=== PATIENT | male | born 1950 | race Caucasian/White ===

== ENCOUNTER 2020-03-01 10:40 | Inpatient (IN) | payer OTHER, MEDICARE, SELFPAY ==
[2020-03-01] VITALS (19 sets, daily range): BP systolic 101–152; BP diastolic 67–114; PULSE 103–126; RESP 17–32; TEMP 36.5–36.8; O2SAT 4–99; BMI 18.8
--- NOTE | 2020-03-01 11:03 | W.ED.SOB ---
HPI - SOB/Dyspnea General: Chief Complaint: Shortness of Breath/Dyspnea Stated Complaint: DIFF BREATHING Time Seen by Provider: 03/01/20 10:47 History of Present Illness: HPI Narrative: 69-year-old male presents emergency room complaint difficulty breathing. States he has been short of breath pretty consistently for the last year. More recently he has been having an increasing cough wheezing his albuterol nebs do not seem to be working as well. He was at the [facility] evidently today his oxygen saturations were in the low 80s he was started on 2 L by nasal cannula and titrated up to 4 L for the time he arrived here. His oxygen saturations now are in the 90s. He has not had any fever he has had some generalized muscle aches although he does not compared to flulike symptoms he has had some loose stools. Is not recently been on any antibiotics or steroids. MD elicited complaint: shortness of breath and cough Pertinent past history: COPD Onset (ago): month(s) Timing: constant Severity: severe Exacerbating factors: exertion, coughing and stress Relieving factors: nothing and oxygen Known history of: COPD Associated symptoms: Reports chest congestion, myalgias and palpitations; Deny abdominal pain, chest pain, cough, diaphoresis, dizziness, extremity pain, fever(s), hemoptysis, lightheadedness, nausea, orthopnea, paresthesias, polydipsia, polyuria, rash, sense of impending doom, syncope or vomiting Treatment prior to arrival: oxygen Review of Systems Const: Denies: fever(s) or diaphoresis ENMT: Denies: throat pain, ear or mastoid pain, nasal discharge or nasal congestion Card: Reports: palpitations; Denies: chest pain, lightheadedness, syncope or orthopnea Resp: Reports: chest congestion; Denies: hemoptysis GI: Denies: abdominal pain, nausea or vomiting : Denies: flank pain, dysuria, urinary frequency or urinary urgency Musc: Denies: extremity pain Skin/Breast: Denies: rash or pruritus Neuro: Denies: dizziness Endo: Denies: polyuria or polydipsia Physical Exam Const: COMMON NORMALS: no acute distress GENERAL APPEARANCE: cooperative and comfortable ORIENTATION/CONSCIOUSNESS: Yes awake, Yes oriented to person, Yes oriented to place and Yes oriented to time HENMT: COMMON NORMALS: normocephalic, atraumatic and hearing grossly normal bilaterally HEAD & SCALP: normocephalic and atraumatic Neck/C-Spine: COMMON NORMALS: no JVD Resp: COMMON NORMALS: normal respiratory effort, No retractions, No use of accessory muscles and clear to auscultation bilaterally AUSCULTATION: clear to auscultation bilaterally Cardio: COMMON NORMALS: no JVD, regular rate, regular rhythm and No murmurs present (Cardio) RATE: regular rate RHYTHM: regular rhythm GI: COMMON NORMALS: Soft to palpation and No hepatosplenomegaly present AUSCULTATION: Yes normoactive bowel sounds PALPATION: Yes Soft to palpation, No Tenderness to palpation present (GI), No Guarding due to palpation present (GI) and Yes No hepatosplenomegaly present Extremity: COMMON NORMALS: normal to inspection, capillary refill normal, no clubbing, cyanosis or edema, no calf tenderness and no pedal edema Neuro: SENSORIUM/ORIENTATION: Yes oriented to person, Yes oriented to place and Yes oriented to time Skin: COMMON NORMALS: no rashes or lesions noted GENERAL SKIN EXAM: no rashes or lesions noted Course Vital Signs: Vital signs: Vital Signs Temperature 98.3 F 03/01/20 10:43 Pulse Rate 115 H 03/01/20 16:29 Respiratory Rate 18 03/01/20 16:29 Blood Pressure 146/101 03/01/20 15:44 Pulse Oximetry 98 03/01/20 16:29 MDM - SOB/Dyspnea MDM Narrative: Medical decision making narrative: We are making arrangements for home O2 eval and the patient went outside without discussing with us. We found him outside he was extremely short of breath brought him back and is now requiring 6 L by nasal cannula definitely does require home O2. Initially he has an acute exacerbation of his COPD he will need better control discussed with Dr. Yang will admit him. His Covid test was negative. Lab Data: Labs: Lab Results 03/01/20 03/01/20 03/01/20 Range/Units 11:00 11:00 11:00 WBC 6.6 (4.0-10.0) 10^3/ uL RBC 3.92 L (4.1-5.3) 10^6/u L Hgb 13.4 (11.7-16.6) g/dL Hct 39.9 L (42.0-52.0) % MCV 101.8 H (80-94) fL MCH 34.2 H (28.0-34.0) pg MCHC 33.6 (30.0-36.0) g/dL RDW 13.1 (12.1-15.1) % Plt Count 174 (130-400) 10^3/c mm MPV 10.3 (7.4-10.4) fL Neut % (Auto) 57.2 % Lymph % (Auto) 22.5 % [place] % (Auto) 10.2 % Eos % (Auto) 7.9 % Baso % (Auto) 2.0 % Neut # (Auto) 3.77 (1.8-7.7) 10^3/u L Lymph # (Auto) 1.5 (0.8-4.8) 10^3/u L [place] # (Auto) 0.7 (0.2-0.9) 10^3/u L Eos # (Auto) 0.5 (0.0-0.8) 10^3/u L Baso # (Auto) 0.1 (0.0-0.1) 10^3/u L Nucleated RBC % (a uto) 0 % Nucleated RBCs # 0.0 /100WBC Specimen Type Sample Site ABG pH (7.35-7.45) ABG pCO2 (35-45) mmHg ABG pO2 (80.0-100.0) mmH g ABG HCO3 (22-26) mmol/L ABG O2 Saturation ABG Base Excess (-2.0-2.0) mmol/ L Avel Test A-a O2 Gradient (5-10) mmHg Hematocrit (42-52) % Hgb O2 Saturation (95-100) % Carboxyhemoglobin (0.4-20.1) %THgb Methemoglobin (0.4-1.5) % Total Hemoglobin (14-18) g/dL Ionized Calcium (1.1-1.4) mmol/L O2 Delivery Device O2 Liters/Min % FiO2 % Educational Technology Coordinator ID Sodium 136 (136-145) mmol/L Potassium 4.5 (3.5-5.1) mmol/L Chloride 96 L (98-107) mmol/L Carbon Dioxide 26 (22-29) mmol/L Anion Gap 18.5 (5-19) BUN 9 (8-23) mg/dL Creatinine 0.9 (0.7-1.2) mg/dL GFR Calculation 83.4 L (90-130) mL/min Glucose 91 (65-115) mg/dL Calculated Osmolal ity 280 L (285-295) mOsm/k g Calcium 9.3 (8.5-10.5) mg/dL Total Bilirubin 0.4 (0.15-1.2) mg/dL AST 24 (0-40) U/L ALT 15 (0-41) U/L Alkaline Phosphata se 118 (40-130) IU/L Creatine Kinase 74 (39-308) U/L Troponin T Baselin e 46 H (0-15) ng/L Troponin T 120 Min [place] (0-15) ng/L Delta Troponin T (0-10) ABS# Total Protein 6.2 L (6.6-8.7) g/dL Albumin 4.0 (3.5-5.2) g/dL Globulin 2.2 (1.3-4.6) g/dL Urine Color (Yellow) Urine Appearance (CLEAR) Urine pH (5-7) Ur Specific Gravit y (1.005-1.030) Urine Protein (Negative) Urine Glucose (UA) (Normal) Urine Ketones (Negative) Urine Blood (Negative) Urine Nitrate (Negative) Urine Bilirubin (Negative) Urine Urobilinogen (Negative) mg/dL Ur Leukocyte Jeannie ase (Negative) SARS-CoV-2 Ag (Rap id) (Negative) 03/01/20 03/01/20 03/01/20 Range/Units 11:00 13:20 14:40 WBC (4.0-10.0) 10^3/ uL RBC (4.1-5.3) 10^6/u L Hgb (11.7-16.6) g/dL Hct (42.0-52.0) % MCV (80-94) fL MCH (28.0-34.0) pg MCHC (30.0-36.0) g/dL RDW (12.1-15.1) % Plt Count (130-400) 10^3/c mm MPV (7.4-10.4) fL Neut % (Auto) % Lymph % (Auto) % [place] % (Auto) % Eos % (Auto) % Baso % (Auto) % Neut # (Auto) (1.8-7.7) 10^3/u L Lymph # (Auto) (0.8-4.8) 10^3/u L [place] # (Auto) (0.2-0.9) 10^3/u L Eos # (Auto) (0.0-0.8) 10^3/u L Baso # (Auto) (0.0-0.1) 10^3/u L Nucleated RBC % (a uto) % Nucleated RBCs # /100WBC Specimen Type Sample Site ABG pH (7.35-7.45) ABG pCO2 (35-45) mmHg ABG pO2 (80.0-100.0) mmH g ABG HCO3 (22-26) mmol/L ABG O2 Saturation ABG Base Excess (-2.0-2.0) mmol/ L Avel Test A-a O2 Gradient (5-10) mmHg Hematocrit (42-52) % Hgb O2 Saturation (95-100) % Carboxyhemoglobin (0.4-20.1) %THgb Methemoglobin (0.4-1.5) % Total Hemoglobin (14-18) g/dL Ionized Calcium (1.1-1.4) mmol/L O2 Delivery Device O2 Liters/Min % FiO2 % Educational Technology Coordinator ID Sodium (136-145) mmol/L Potassium (3.5-5.1) mmol/L Chloride (98-107) mmol/L Carbon Dioxide (22-29) mmol/L Anion Gap (5-19) BUN (8-23) mg/dL Creatinine (0.7-1.2) mg/dL GFR Calculation (90-130) mL/min Glucose (65-115) mg/dL Calculated Osmolal ity (285-295) mOsm/k g Calcium (8.5-10.5) mg/dL Total Bilirubin (0.15-1.2) mg/dL AST (0-40) U/L ALT (0-41) U/L Alkaline Phosphata se (40-130) IU/L Creatine Kinase (39-308) U/L Troponin T Baselin e (0-15) ng/L Troponin T 120 Min [place] 40.23 H (0-15) ng/L Delta Troponin T -5.77 L (0-10) ABS# Total Protein (6.6-8.7) g/dL Albumin (3.5-5.2) g/dL Globulin (1.3-4.6) g/dL Urine Color Yellow (Yellow) Urine Appearance Clear (CLEAR) Urine pH 5 (5-7) Ur Specific Gravit y 1.015 (1.005-1.030) Urine Protein Neg (Negative) Urine Glucose (UA) Norm (Normal) Urine Ketones 1+ H (Negative) Urine Blood Neg (Negative) Urine Nitrate Negative (Negative) Urine Bilirubin Neg (Negative) Urine Urobilinogen Norm (Negative) mg/dL Ur Leukocyte Jeannie ase Negative (Negative) SARS-CoV-2 Ag (Rap id) Negative (Negative) 03/01/20 Range/Units 16:08 WBC (4.0-10.0) 10^3/ uL RBC (4.1-5.3) 10^6/u L Hgb (11.7-16.6) g/dL Hct (42.0-52.0) % MCV (80-94) fL MCH (28.0-34.0) pg MCHC (30.0-36.0) g/dL RDW (12.1-15.1) % Plt Count (130-400) 10^3/c mm MPV (7.4-10.4) fL Neut % (Auto) % Lymph % (Auto) % [place] % (Auto) % Eos % (Auto) % Baso % (Auto) % Neut # (Auto) (1.8-7.7) 10^3/u L Lymph # (Auto) (0.8-4.8) 10^3/u L [place] # (Auto) (0.2-0.9) 10^3/u L Eos # (Auto) (0.0-0.8) 10^3/u L Baso # (Auto) (0.0-0.1) 10^3/u L Nucleated RBC % (a uto) % Nucleated RBCs # /100WBC Specimen Type Arterial Sample Site Radial, right ABG pH 7.33 L (7.35-7.45) ABG pCO2 37.3 (35-45) mmHg ABG pO2 87.6 (80.0-100.0) mmH g ABG HCO3 19.9 L (22-26) mmol/L ABG O2 Saturation 96.0 ABG Base Excess -5.4 L (-2.0-2.0) mmol/ L Avel Test Pos A-a O2 Gradient 23.2 H (5-10) mmHg Hematocrit 46.1 (42-52) % Hgb O2 Saturation 94.7 L (95-100) % Carboxyhemoglobin 0.9 (0.4-20.1) %THgb Methemoglobin 0.5 (0.4-1.5) % Total Hemoglobin 15.0 (14-18) g/dL Ionized Calcium 1.2 (1.1-1.4) mmol/L O2 Delivery Device Nc O2 Liters/Min 6.0 % FiO2 44.0 % Educational Technology Coordinator ID Ed Sodium 133.0 (136-145) mmol/L Potassium 5.1 H (3.5-5.1) mmol/L Chloride (98-107) mmol/L Carbon Dioxide (22-29) mmol/L Anion Gap (5-19) BUN (8-23) mg/dL Creatinine (0.7-1.2) mg/dL GFR Calculation (90-130) mL/min Glucose 128.0 H (65-115) mg/dL Calculated Osmolal ity (285-295) mOsm/k g Calcium (8.5-10.5) mg/dL Total Bilirubin (0.15-1.2) mg/dL AST (0-40) U/L ALT (0-41) U/L Alkaline Phosphata se (40-130) IU/L Creatine Kinase (39-308) U/L Troponin T Baselin e (0-15) ng/L Troponin T 120 Min [place] (0-15) ng/L Delta Troponin T (0-10) ABS# Total Protein (6.6-8.7) g/dL Albumin (3.5-5.2) g/dL Globulin (1.3-4.6) g/dL Urine Color (Yellow) Urine Appearance (CLEAR) Urine pH (5-7) Ur Specific Gravit y (1.005-1.030) Urine Protein (Negative) Urine Glucose (UA) (Normal) Urine Ketones (Negative) Urine Blood (Negative) Urine Nitrate (Negative) Urine Bilirubin (Negative) Urine Urobilinogen (Negative) mg/dL Ur Leukocyte Jeannie ase (Negative) SARS-CoV-2 Ag (Rap id) (Negative) Discharge Plan Discharge Patient Disposition: Admitted As Inpatient Clinical Impression: Acute exacerbation of chronic obstructive airways disease Condition: Stable Coding Level of Care Code ED Drivability Technician for Ciro Fwd Exam Comprehensive
--- NOTE | 2020-03-01 11:04 | XRR_ITS ---
PROCEDURE INFORMATION: Exam: XR Chest, 1 View Exam date and time: 03/01/2020 11:12 AM Age: 69 years old Clinical indication: Cough and dyspnea and shortness of breath; Patient HX: Difficulty breathing x 1 year; Additional info: Dyspnea/cough TECHNIQUE: Imaging protocol: XR of the chest Views: 1 view. COMPARISON: No relevant prior studies available. FINDINGS: Lungs: Emphysema Lungs are well aerated without a focal area of consolidation. Pleural space: Unremarkable. No pleural effusion. No pneumothorax. Heart/Mediastinum: Unremarkable. No cardiomegaly. Bones/joints: Unremarkable. XR/XR chest 1V portable [id number] IMPRESSION: Lungs are well aerated without a focal area of consolidation. Severe emphysema
--- NOTE | 2020-03-01 11:07 | ECG_ITS ---
[facility] Test Date: 2020-03-01 Pat Name: Hunter Mcadams Department: Room: Gender: Male Inspector Packager: : 1950 Requested By: Redd Gardiner Order Number: [id number] Olga MD: Tab Kat M.D. Measurements Intervals [place] Rate: 105 P: 81 MI: 166 QRS: 81 QRSD: 72 T: 77 QT: 324 QTc: 429 Interpretive Statements SINUS TACHYCARDIA WITH OCCASIONAL ECTOPIC PREMATURE COMPLEXES POSSIBLE RIGHT ATRIAL ENLARGEMENT [0.25mV P WAVE] POSSIBLE LEFT ATRIAL ENLARGEMENT [-0.1mV P WAVE IN V1/V2] SEPTAL MYOCARDIAL INFARCTION , OF INDETERMINATE AGE [40+ ms Q WAVE IN V1/V2] MODERATE T-WAVE ABNORMALITY, CONSIDER ANTERIOR ISCHEMIA [-0.1+ mV T WAVE IN V3/V4] No previous ECG available for comparison Electronically Signed On 03-01-2020 18:56:18 PRODUCT DESIGN MANAGER by Tab Kat M.D. [id number]
[2020-03-01 11:17] LABS: Basophils # 0.1 10^3/uL (0.0-0.1); Eosinophils # 0.5 10^3/uL (0.0-0.8); Eosinophils % 7.9 %; Hematocrit 39.9 % (42.0-52.0); Hemoglobin 13.4 g/dL (11.7-16.6); Lymphocytes # 1.5 10^3/uL (0.8-4.8); Lymphocytes % 22.5 %; Mean Corpuscular HGB Conc 33.6 g/dL (30.0-36.0); Mean Corpuscular Hemoglobin 34.2 pg (28.0-34.0); Mean Corpuscular Volume 101.8 fL (80-94); Mean Platelet Volume 10.3 fL (7.4-10.4); Monocytes # 0.7 10^3/uL (0.2-0.9); Monocytes % 10.2 %; Neutrophils # 3.77 10^3/uL (1.8-7.7); Neutrophils % 57.2 %; Nucleated Red Blood Cells % 0 %; Platelet Count 174 10^3/cmm (130-400); Red Blood Count 3.92 10^6/uL (4.1-5.3); Red Cell Distribution Width 13.1 % (12.1-15.1); White Blood Count 6.6 10^3/uL (4.0-10.0)
[2020-03-01] MEDS: albuterol 8 gm MDI 2 PUFF INHALATION (11:35)
[2020-03-01 11:39] LABS: Alanine Aminotransferase 15 U/L (0-41); Alkaline Phosphatase 118 IU/L (40-130); Anion Gap 18.5 (5-19); Aspartate Amino Transferase 24 U/L (0-40); Blood Urea Nitrogen 9 mg/dL (8-23); Calcium 9.3 mg/dL (8.5-10.5); Carbon Dioxide 26 mmol/L (22-29); Chloride 96 mmol/L (98-107); Creatine Phosphokinase 74 U/L (39-308); Globulin 2.2 g/dL (1.3-4.6); Glomerular Filtration Rate 83.4 mL/min (90-130); Glucose 91 mg/dL (65-115); Osmolality Calculated 280 mOsm/kg (285-295); Potassium 4.5 mmol/L (3.5-5.1); Sodium 136 mmol/L (136-145); Total Bilirubin 0.4 mg/dL (0.15-1.2); Total Protein 6.2 g/dL (6.6-8.7)
[2020-03-01 11:41] LABS: Troponin(5th) Baseline 46 ng/L (0-15)
[2020-03-01] MEDS: dexamethasone 4 mg/mL INJ 10 MG IVP (11:56)
--- NOTE | 2020-03-01 13:07 | ECG_ITS ---
[facility] Test Date: 2020-03-01 Pat Name: Hunter Mcadams Department: Room: Gender: Male Braille Transcriber: : 1950 Requested By: Redd Gardiner Order Number: [id number] Olga MD: Tab Kat M.D. Measurements Intervals [employer] Rate: 107 P: 85 OR: 167 QRS: 85 QRSD: 72 T: 83 QT: 313 QTc: 419 Interpretive Statements SINUS TACHYCARDIA POSSIBLE RIGHT ATRIAL ENLARGEMENT [0.25mV P WAVE] POSSIBLE LEFT ATRIAL ENLARGEMENT [-0.1mV P WAVE IN V1/V2] SEPTAL MYOCARDIAL INFARCTION , OF INDETERMINATE AGE [40+ ms Q WAVE IN V1/V2] Compared to ECG 03/01/2020 11:12:47 No significant changes Electronically Signed On 03-01-2020 19:05:46 COMPUTER GRAPHIC ARTIST by Tab Kat M.D. [email or web address] [id number]
[2020-03-01 13:15] LABS: SARS Covid-2 Antigen Negative (Negative)
[2020-03-01 14:58] LABS: Troponin 5 2HR 40.23 ng/L (0-15); Troponin 5 2HR Delta -5.77 ABS# (0-10)
[2020-03-01 15:07] LABS: Add Urine Microscopic? NO
[2020-03-01 15:12] LABS: Bilirubin Urine Neg (Negative); Blood Urine Neg (Negative); Glucose Urine UA Norm (Normal); Ketones Urine 1+ (Negative); Leukocyte Esterase Urine Negative (Negative); Nitrate Urine Negative (Negative); Protein Urine Neg (Negative); Specific Gravity, Urine 1.015 (1.005-1.030); Urine Appearance Clear (CLEAR); Urine Color Yellow (Yellow); Urobilinogen Urine Norm (Negative); pH Urine 5 (5-7)
[2020-03-01 16:19] LABS: ABG PCO2 37.3 mmHg (35-45); ABG PH Result 7.33 (7.35-7.45); Alveolar-Arterial Oxygen Gradi 23.2 mmHg (5-10); Arterial Blood Gas Hematocrit 46.1 % (42-52); Base Excess ABG -5.4 mmol/L (-2.0-2.0); Blood Gas Allen Test Pos; Blood Gas Operator Identificat ED; Blood Gas Sample Site Radial, right; Blood Gas Sample Type Arterial; Carboxyhemoglobin 0.9 %THgb (0.4-20.1); HCO3 ABG 19.9 mmol/L (22-26); HGB O2 Sat 94.7 % (95-100); Ionized Calcium Level - ABG 1.2 mmol/L (1.1-1.4); Methemoglobin 0.5 % (0.4-1.5); Oxygen Device NC; PO2 ABG 87.6 mmHg (80.0-100.0); Potassium Level - ABG 5.1 mmol/L (3.5-5.0)
[2020-03-01] MEDS: ipratropium-albuterol 3 mL Neb INHALATION ×3 (16:30→21:44)
--- NOTE | 2020-03-01 17:06 | PM.HP ---
Providers/Chief Complaint Primary Care Provider: Sandy Arreola DO Chief Complaint: DIFF BREATHING History of Present Illness Hunter Mcadams is a 69 year old male with a past medical history of hypertension, BPH, has a greater than [id number] history of smoking, newly diagnosed with COPD in the last few weeks, not on home oxygen, who presents to [facility] due to shortness of breath. Patient tells me that he is always short of breath, has been short of breath for the last few years, but for the last few months shortness of breath has worsened, shortness of breath acutely worsened for the last week, shortness of breath at rest with exertion, orthopnea, paroxysmal nocturnal dyspnea, he is actively wheezing, so he presented to the [facility] physician who told him to come the emergency room. Patient has a chronic cough, no increased sputum, no changes in color,. patient denies a cardiac history, denies a history of CAD, denies a history of heart attacks, denies a history of strokes, no history of diabetes, no history of hypothyroidism, no history of chronic kidney disease, history of DVTs or PEs. Patient denies any fevers, no chills, no known exposure to COVID-19, no loss of taste, no loss of smell, has never tested positive for Covid. Review of Systems Const: Denies: fever(s), chills, fatigue or malaise Eyes: Denies: change in vision or blurry vision ENMT: Denies: nasal congestion Card: Denies: chest pain or palpitations Resp: Reports: dyspnea; Denies: productive cough, non-productive cough or wheezing GI: Denies: abdominal pain, nausea, vomiting, hematemesis, diarrhea, constipation, hematochezia or melena : Denies: flank pain, difficulty urinating, dysuria or urinary frequency Musc: Denies: neck pain or back pain Skin/Breast: Denies: rash Neuro: Denies: headache(s), dizziness or vertigo Psych: Denies: anxiety or depression Endo: Denies: polyuria or polydipsia Medications/Allergies Home Medications Medication Instructions Recorded Confirmed Last Taken Type albuterol sulfate 2 puff INHALATION QID PRN 03/01/20 03/01/20 Unknown History aspirin 325 mg PO DAILY 03/01/20 03/01/20 Unknown History cyanocobalamin (vitamin B-12) 100 mcg PO PRN 03/01/20 03/01/20 Unknown History [Vitamin B-12] guaifenesin 200 mg PO Q6H PRN 03/01/20 03/01/20 03/01/20 History written q4h prn ibuprofen 200 - 800 mg PO PRN 03/01/20 03/01/20 Unknown History ipratropium-albuterol 3 ml INHALATION QID PRN 03/01/20 03/01/20 Unknown History lisinopril-hydrochlorothiazide 1 tab PO QAM 03/01/20 03/01/20 03/01/20 History montelukast 10 mg PO QPM 03/01/20 03/01/20 Unknown History multivitamin 1 tab PO DAILY 03/01/20 03/01/20 Unknown History olodaterol [Striverdi Respimat] 2 inh INHALATION QAM 03/01/20 03/01/20 03/01/20 History tamsulosin [Flomax] 0.4 mg PO QPM 03/01/20 03/01/20 02/27/20 History doesnt take daily vitamin E 1 cap PO PRN 03/01/20 03/01/20 Unknown History Allergies Allergy/AdvReac Type Severity Reaction Status Date / Time pneumococcal vaccine Allergy Unknown Verified 03/01/20 13:15 bee stings Allergy Unknown Uncoded 03/01/20 13:15 PFSH Acute PFSH: Medical History (Updated 03/01/20 @ 17:13 by Russel Carolina MD) BPH (benign prostatic hyperplasia) HTN (hypertension) with goal to be determined Surgical History (Updated 03/01/20 @ 17:11 by Russel Carolina MD) No pertinent past surgical history Family History (Updated 03/01/20 @ 17:11 by Russel Carolian MD) Other Adopted Social History (Updated 03/01/20 @ 17:12 by Russel Carolina MD) Smoking and tobacco status: current every day smoker Alcohol intake: current Substance/Drug Use: never Vitals/I&O/Wt Last Vital Signs Temp 98.3 F 03/01/20 10:43 Pulse 115 H 03/01/20 16:29 Resp 18 03/01/20 16:29 BP 146/101 03/01/20 15:44 Pulse Ox 98 03/01/20 16:29 Weight last 48 hrs Weight 54.431 kg Physical Exam Const: COMMON NORMALS: no acute distress and patient oriented x3 GENERAL APPEARANCE: cooperative and comfortable HENMT: COMMON NORMALS: normocephalic HEAD & SCALP: normocephalic Eye: COMMON NORMALS: Equal, round and reactive pupils present and EOMs intact bilaterally GENERAL EYE: appearance normal, both eyes and all related structures PUPIL: Yes Equal, round and reactive pupils present Neck/C-Spine: COMMON NORMALS: full ROM, no lymphadenopathy, no JVD and Thyroid normal THYROID: Thyroid normal Lymph: LYMPHATIC: no lymphadenopathy noted Resp: COMMON NORMALS: normal respiratory effort, No retractions and No use of accessory muscles AUSCULTATION: wheezes inspiratory wheezes (throughout) Cardio: COMMON NORMALS: no JVD, regular rate, regular rhythm, S1 normal heart sound present, S2 normal heart sound present, No gallops present (Cardio), No clicks present (Cardio) and No murmurs present (Cardio) RATE: regular rate RHYTHM: regular rhythm HEART SOUNDS: S1 normal heart sound present and S2 normal heart sound present GI: COMMON NORMALS: Normal to inspection, nondistended, normoactive bowel sounds present, Soft to palpation, non-tender and No hepatosplenomegaly present PALPATION: Yes Soft to palpation and Yes No hepatosplenomegaly present Extremity: COMMON NORMALS: normal to inspection, full ROM and no pedal edema Neuro: COMMON NORMALS: patient oriented x3, CN's II-XII intact bilaterally, moves all extremities and no focal motor deficits Psych: COMMON NORMALS: mental status grossly normal, Normal thought process present and cooperative THOUGHT PROCESS: Normal thought process present Data : 03/01/20 11:00 03/01/20 11:00 A&P Assessment and plan (1) Acute respiratory failure with hypoxia: Secondary to COPD exacerbation Plan: -Admit to general medical floors -Solu-Medrol 40 IV every 8 hours -DuoNebs every 4 hours scheduled -Doxycycline for anti-inflammatory antibiotic coverage -We will order CT angiogram of the chest to rule out pulmonary emboli -Cardiac echocardiogram given complaints of orthopnea paroxysmal nocturnal dyspnea, BNP -Clinically monitor respiratory status -Sputum cultures, blood cultures, urine bacterial antigens -Covid rapid negative, will order Covid PCR, isolation for now -Patient is a full code -Lovenox for DVT prophylaxis Status: Acute (2) BPH (benign prostatic hyperplasia): Status: Acute (3) HTN (hypertension) with goal to be determined: Status: Acute (4) Acute exacerbation of chronic obstructive airways disease: Status: Acute Attestations Medical Necessity Statement*: Patient requires hospitalization, inpatient, greater than 2 midnights for acute respiratory failure with hypoxia secondary to COPD Coding Level of Care Code Acute Rnp for [facility] Fwd Diagnoses Acute respiratory failure with hypoxia J96.01 BPH (benign prostatic hyperplasia) N40.0 HTN (hypertension) with goal to be determined I10 Acute exacerbation of chronic obstructive airways disease J44.1
--- NOTE | 2020-03-01 17:07 | ECG_ITS ---
[facility] Test Date: 2020-03-01 Pat Name: Hunter Mcadams Department: Room: Gender: Male Program Facilitator: : 1950 Requested By: Redd Gardiner Order Number: [id number] Olga MD: Tab Kat M.D. Measurements Intervals [place] Rate: 119 P: 87 [place]: 157 QRS: 75 QRSD: 64 T: 80 QT: 289 QTc: 407 Interpretive Statements SINUS TACHYCARDIA WITH OCCASIONAL ECTOPIC PREMATURE COMPLEXES RIGHT ATRIAL ENLARGEMENT [0.3mV P WAVE] POSSIBLE LEFT ATRIAL ENLARGEMENT [-0.1mV P WAVE IN V1/V2] SEPTAL MYOCARDIAL INFARCTION , OF INDETERMINATE AGE [40+ ms Q WAVE IN V1/V2] Compared to ECG 03/01/2020 13:17:41 No significant changes Electronically Signed On 03-01-2020 19:01:50 ASSESSMENT NURSE by Tab Kat M.D. [id number]
[2020-03-01 18:58] LABS: Troponin 5 6HR 35.04 ng/L (0-15)
[2020-03-01 19:03] LABS: Troponin 5 6HR Delta -10.96 ng/L (0-12)
[2020-03-01] MEDS: D5-NS 0.45% + KCL 20 mEq 20 MEQ/1,000 ML BAG 100 MEQ IV (21:59)
[2020-03-01] MEDS: tamsulosin 0.4 mg Capsule PO (22:00)
[2020-03-01] MEDS: montelukast sodium 10 mg Tablet PO (22:00)
[2020-03-01] MEDS: enoxaparin 40 mg/0.4 mL Syringe SUBCUT (22:00)
[2020-03-01] MEDS: famotidine 20 mg Tablet PO (22:00)
[2020-03-02] VITALS (15 sets, daily range): BP systolic 108–139; BP diastolic 69–77; PULSE 89–128; RESP 17–20; TEMP 36.5–36.8; O2SAT 92–98
[2020-03-02] MEDS: ipratropium-albuterol 3 mL Neb INHALATION ×5 (02:31→19:20)
[2020-03-02] MEDS: guaiFENesin-dextromethorphan UDC 10 mL 5 ML PO (05:13)
[2020-03-02 05:31] LABS: Basophils % 0.2 %; Hematocrit 38.5 % (42.0-52.0); Hemoglobin 12.4 g/dL (11.7-16.6); Lymphocytes # 0.8 10^3/uL (0.8-4.8); Lymphocytes % 15.8 %; Mean Corpuscular HGB Conc 32.2 g/dL (30.0-36.0); Mean Corpuscular Hemoglobin 33.4 pg (28.0-34.0); Mean Corpuscular Volume 103.8 fL (80-94); Mean Platelet Volume 10.8 fL (7.4-10.4); Monocytes # 0.2 10^3/uL (0.2-0.9); Monocytes % 4.4 %; Neutrophils # 3.96 10^3/uL (1.8-7.7); Neutrophils % 79.4 %; Nucleated Red Blood Cells % 0 %; Platelet Count 164 10^3/cmm (130-400); Red Blood Count 3.71 10^6/uL (4.1-5.3); Red Cell Distribution Width 12.9 % (12.1-15.1)
[2020-03-02] MEDS: nicotine 21 mg Patch 1 PATCH TRANSDERMA (05:39)
[2020-03-02] MEDS: ALPRAZolam 0.5 mg Tablet PO (05:40)
[2020-03-02 06:05] LABS: Alanine Aminotransferase 15 U/L (0-41); Albumin Level 3.5 g/dL (3.5-5.2); Alkaline Phosphatase 97 IU/L (40-130); Aspartate Amino Transferase 20 U/L (0-40); Blood Urea Nitrogen 11 mg/dL (8-23); Calcium 8.9 mg/dL (8.5-10.5); Carbon Dioxide 21 mmol/L (22-29); Chloride 93 mmol/L (98-107); Globulin 2.6 g/dL (1.3-4.6); Glomerular Filtration Rate 95.6 mL/min (90-130); Glucose 214 mg/dL (65-115); Osmolality Calculated 272 mOsm/kg (285-295); Sodium 128 mmol/L (136-145); Total Bilirubin 0.3 mg/dL (0.15-1.2); Total Protein 6.1 g/dL (6.6-8.7)
[2020-03-02] MEDS: doxycycline 100 MG in sodium chloride 0.9% (plus) 100 ML IV ×2 (06:39→18:01)
[2020-03-02 06:44] LABS: Estmated Average Glucose 82; Hemoglobin A1C 4.5 % (4.0-6.0)
[2020-03-02 06:46] LABS: Phosphorus 3.2 mg/dL (2.5-4.5); Thyroid Stimulating Hormone 1.64 uIU/mL (0.27-4.20)
[2020-03-02 06:47] LABS: NT Pro B Type Natriuretic Pept 827 pg/mL (0-125); Procalcitonin 0.05 ng/mL (0-0.5)
[2020-03-02 06:58] LABS: Chol HDL Ratio 1.75 mg/dL (1.0-5.00); Cholesterol 194 mg/dL (0-200); HDL Cholesterol 111 mg/dL (60-100); LDL Cholesterol Calculated 74 mg/dL (50-129); LDL HDL Ratio 0.67 RATIO (0.00-3.22); Triglycerides 45 mg/dL (0-150)
[2020-03-02] MEDS: multivitamin therapeutic Tablet 1 TAB PO (08:15)
[2020-03-02] MEDS: aspirin 325 mg Tablet 81 MG PO (08:15)
[2020-03-02] MEDS: hydroCHLOROthiazide 25 mg Tablet 12.5 MG PO (08:15)
[2020-03-02] MEDS: famotidine 20 mg Tablet PO ×2 (08:15→16:56)
[2020-03-02] MEDS: lisinopril 20 mg Tablet PO (08:16)
--- NOTE | 2020-03-02 12:05 | P.PN_ITS ---
Subjective Subjective: Interval history: This morning patient was examined, he is getting ready to go down for CT angiogram, he is down to 4 L, he tells me that he is a bit better, but still having some shortness of breath, had trouble sleeping overnight, no chest pain, no fevers, no chills Vitals/I&O/Wt Last Vital Signs Temp 97.8 F 03/02/20 11:15 Pulse 107 H 03/02/20 11:26 Resp 18 03/02/20 11:26 BP 132/77 03/02/20 11:15 Pulse Ox 93 03/02/20 11:26 03/01/20 03/02/20 03/02/20 22:59 06:59 14:59 Intake Total 320 / 320 Output Total 200 / 200 300 / 300 Balance -200 / -200 20 / 20 Weight last 48 hrs Weight 54.431 kg Physical Exam Const: COMMON NORMALS: no acute distress and patient oriented x3 HENMT: COMMON NORMALS: normocephalic HEAD & SCALP: normocephalic Neck/C-Spine: COMMON NORMALS: no JVD Resp: COMMON NORMALS: normal respiratory effort, No retractions and No use of accessory muscles AUSCULTATION: wheezes Cardio: COMMON NORMALS: no JVD, regular rate, regular rhythm, S1 normal heart sound present and S2 normal heart sound present RATE: regular rate RHYTHM: regular rhythm HEART SOUNDS: S1 normal heart sound present and S2 normal heart sound present GI: COMMON NORMALS: Normal to inspection, nondistended, normoactive bowel sounds present, Soft to palpation, non-tender, No hepatosplenomegaly present, no masses and no bruits PALPATION: Yes Soft to palpation and Yes No hepatosplenomegaly present Extremity: COMMON NORMALS: capillary refill normal, no clubbing, cyanosis or edema, no calf tenderness and no pedal edema Neuro: COMMON NORMALS: patient oriented x3 Psych: COMMON NORMALS: mental status grossly normal Data : 03/02/20 04:58 03/02/20 04:58 Micro: Microbiology 03/01/20 22:58 Blood Culture - Preliminary Blood SPECIMEN COLLECTED 03/01/20 22:51 Blood Culture - Preliminary Blood SPECIMEN COLLECTED A&P Assessment and plan (1) Acute respiratory failure with hypoxia: Secondary to COPD exacerbation Plan: -Admit to general medical floors -Solu-Medrol 40 IV every 8 hours -DuoNebs every 4 hours scheduled -Doxycycline for anti-inflammatory antibiotic coverage -We will order CT angiogram of the chest to rule out pulmonary emboli -Cardiac echocardiogram given complaints of orthopnea paroxysmal nocturnal dyspnea, BNP 827, does not appear fluid overloaded -Clinically monitor respiratory status -Sputum cultures, blood cultures, urine bacterial antigens -Covid rapid negative, will order Covid PCR, isolation for now -Patient is a full code -Lovenox for DVT prophylaxis Status: Acute (2) BPH (benign prostatic hyperplasia): Status: Acute (3) HTN (hypertension) with goal to be determined: Status: Acute (4) Acute exacerbation of chronic obstructive airways disease: Status: Acute (5) NSTEMI (non-ST elevated myocardial infarction): Likely type II NSTEMI from respiratory failure Status: Acute Additional A&P Information Plan for today await CT angiogram results, echo results, continue steroids, duo nebs, PT OT Attestations Medical Necessity Statement*: Patient requires hospitalization for acute respiratory failure secondary COPD exacerbation, Coding Level of Care Code Acute Underwriting Technician for [facility] Fwd Diagnoses Acute respiratory failure with hypoxia J96.01 BPH (benign prostatic hyperplasia) N40.0 HTN (hypertension) with goal to be determined I10 Acute exacerbation of chronic obstructive airways disease J44.1 NSTEMI (non-ST elevated myocardial infarction) I21.4
[2020-03-02] MEDS: tamsulosin 0.4 mg Capsule PO (16:56)
[2020-03-02 16:57] LABS: Coronavirus Test Green County Not Detected
[2020-03-02] MEDS: montelukast sodium 10 mg Tablet PO (16:57)
--- NOTE | 2020-03-02 18:05 | ANES.PROC ---
Anesthesia Procedures Procedure/Date: 03/02/20 IV Procedure Narrative: Called at request of for PIV for CT with contrast. Used US guided technique and on second attempt inserted 20 ga IV to left bicep after prepped area with alcohol. Good blood return and flushed well with tegaderm applied. Pt tolerated well
[2020-03-02] MEDS: iohexol 350 mg/mL 100 mL Btl IV (20:40)
[2020-03-02] MEDS: enoxaparin 40 mg/0.4 mL Syringe SUBCUT (21:12)
--- NOTE | 2020-03-02 21:28 | USCV_ITS ---
Hunter Mcadams Age: 69 Gender: M : 1950 Exam Date: 03/02/2020 11:45 Ordering Phys: Russel Carolina MD Technologist: Shanique Ferrer Exam Location: [facility] – [place] Indication: SOB BP: / HR: Rhythm: Other Technical Quality: Poor secondary to COPD MEASUREMENTS (Male / Female) Normal Values 2D ECHO LV Diastolic Diameter PLAX 3.1 cm 4.2 - 5.9 / 3.9 - 5.3 cm LV Systolic Diameter PLAX 2.4 cm LV Chamber Size 3.5 cm IVS Diastolic Thickness 0.4 cm 0.6 - 1.0 / 0.6 - 0.9 cm IVS Systolic Thickness 1.1 cm LVPW Diastolic Thickness 1.3 cm 0.6 - 1.0 / 0.6 - 0.9 cm LVPW Systolic Thickness 0.7 cm RV Chamber Size 3.1 cm LVOT Diameter 2.0 cm LV Ejection Fraction 2D Teich 49.0 % LA Diameter 2.4 cm LA Width 2.5 cm LA Height 2.7 cm RA Width 2.6 cm RA Height 3.3 cm M-MODE LV Diastolic Diameter MM 5.2 cm 4.2 - 5.9 / 3.9 - 5.3 cm LV Systolic Diameter MM 3.6 cm LV Ejection Fraction MM Teich 59.6 % IVS Diastolic Thickness MM 1.0 cm 0.6 - 1.0 / 0.6 - 0.9 cm IVS Systolic Thickness MM 1.3 cm LVPW Diastolic Thickness MM 1.0 cm 0.6 - 1.0 / 0.6 - 0.9 cm LVPW Systolic Thickness MM 1.5 cm Aortic Annulus Diameter 3.4 cm LA Ao Ratio MM 0.4 MV E Point Septal Separation 0.5 cm DOPPLER AV Peak Velocity 204.0 cm/s LVOT Peak Velocity 98.0 cm/s AV Area Cont Eq vti 1.1 cm squared AV Area Cont Eq pk 1.5 cm squared MV E' Velocity 8.0 cm/s TV Peak E Velocity 80.0 cm/s Right Atrial Pressure 8.0 mmHg FINDINGS Left Ventricle Normal left ventricular size and systolic function, EF 55% . No gross wall motion normalities noted Right Ventricle Possibly normal size ejection fraction Right Atrium The right atrium is normal in size. Left Atrium The left atrium is normal in size. Mitral Valve Mild mitral annular calcification. Aortic Valve Thickened aortic valve. Trace aortic valve regurgitation. Tricuspid Valve Trace to mild tricuspid valve regurgitation. Pulmonic Valve Pulmonic valve not well visualized. Pericardium Normal pericardium without effusion. Aorta Normal ascending aorta dimension. CONCLUSIONS Normal left ventricular size and systolic function, EF 55% . No gross wall motion normalities noted. Thickened aortic valve. Trace aortic valve regurgitation. Trace to mild tricuspid valve regurgitation. Mild mitral annular calcification. There is no pericardial effusion. There are no intracardiac masses. No previous study is available for comparison. Dr Jannette Stern MD FACC (Electronically Signed) Final Date: 02 March 2020 17:39 S
--- NOTE | 2020-03-02 21:28 | CTR_ITS ---
PROCEDURE INFORMATION: Exam: CT Angiography Chest With Contrast Exam date and time: 03/02/2020 8:29 AM Age: 69 years old Clinical indication: Shortness of breath; Additional info: SOB TECHNIQUE: Imaging protocol: Computed tomographic angiography of the chest with intravenous contrast. 3D rendering (Not supervised by radiologist): MIP and/or 3D reconstructed images were created by the technologist. Total images: 858 Radiation optimization: All CT scans at this facility use at least one of these dose optimization techniques: automated exposure control; mA and/or kV adjustment per patient size (includes targeted exams where dose is matched to clinical indication); or iterative reconstruction. Contrast material: OMNI 350; Contrast volume: 48 ml; Contrast route: INTRAVENOUS (IV); COMPARISON: CR XR chest 1V portable [id number] 03/01/2020 11:05 AM RADIATION DOSE METRICS: Total DLP (mGy-cm): 504.64 FINDINGS: Pulmonary arteries: No visible evidence of pulmonary embolism/pulmonary arterial thrombus. Aorta: The thoracic aorta is nonaneurysmal. No visible intimal flap or dissection. Moderately advanced arterial sclerotic disease. Lungs: Mild centrilobular emphysema. No visible active interstitial or alveolar airspace disease. Rare focus of nonobstructing tracheal mucus. Pleural space: Unremarkable. No pneumothorax. No pleural effusion. Heart: Advanced 3 vessel coronary artery disease. Left ventricular hypertrophy. No cardiomegaly. No visible pericardial effusion. Lymph nodes: No visible evidence of active mediastinal or hilar lymphadenopathy. Bones/joints: No visible active or acute osseous pathology. Old superior endplate fractures of L1 and L2. Soft tissues: Unremarkable for age CT/CT angio chest PE protcl [id number] IMPRESSION: 1. No visible evidence of pulmonary embolism/pulmonary arterial thrombus. 2. Advanced 3 vessel coronary disease with left ventricular hypertrophy. Radiation Dose CTDIVOL = (mGy): DLP = 504.64 (mGy-cm)
[2020-03-03] VITALS (14 sets, daily range): BP systolic 114–128; BP diastolic 71–81; PULSE 73–121; RESP 17–18; TEMP 36.5–37; O2SAT 78–100
[2020-03-03] MEDS: ipratropium-albuterol 3 mL Neb INHALATION ×4 (00:11→12:14)
[2020-03-03] MEDS: D5-NS 0.45% + KCL 20 mEq 20 MEQ/1,000 ML BAG 100 MEQ IV (00:37)
--- NOTE | 2020-03-03 04:31 | PC.NURSE ---
Physician Notification Patient was seen wondering into a neighboring room, states he was trying to find the restroom. Nurse noticed a trail of blood following him. IV fluids were disconnected and IV site was bleeding. Applied pressure to IV site, catheter that was removed inadvertently was intact. Assisted patient back to room. Patient is A&O to person. VS as follows: T96.8 BP135/80 P113 RR22 O2 99% on 3L BG [address] Macedo, received order for 1:1 sitter, will decrease IV steroids.
[2020-03-03 04:40] LABS: Glucose Point of Care 184 mg/dL (70-110)
[2020-03-03 05:50] LABS: Basophils % 0.1 %; Hematocrit 38.7 % (42.0-52.0); Hemoglobin 12.8 g/dL (11.7-16.6); Lymphocytes # 0.6 10^3/uL (0.8-4.8); Lymphocytes % 3.8 %; Mean Corpuscular HGB Conc 33.1 g/dL (30.0-36.0); Mean Corpuscular Hemoglobin 34.2 pg (28.0-34.0); Mean Corpuscular Volume 103.5 fL (80-94); Monocytes # 0.7 10^3/uL (0.2-0.9); Monocytes % 4.8 %; Neutrophils # 13.33 10^3/uL (1.8-7.7); Neutrophils % 90.9 %; Nucleated Red Blood Cells % 0 %; Platelet Count 197 10^3/cmm (130-400); Red Blood Count 3.74 10^6/uL (4.1-5.3); Red Cell Distribution Width 13.2 % (12.1-15.1); White Blood Count 14.7 10^3/uL (4.0-10.0)
[2020-03-03 06:32] LABS: Magnesium 1.9 mg/dL (1.7-2.3); Phosphorus 2.8 mg/dL (2.5-4.5)
[2020-03-03 06:36] LABS: Alanine Aminotransferase 16 U/L (0-41); Albumin Level 3.9 g/dL (3.5-5.2); Alkaline Phosphatase 99 IU/L (40-130); Aspartate Amino Transferase 23 U/L (0-40); Blood Urea Nitrogen 11 mg/dL (8-23); Calcium 9.5 mg/dL (8.5-10.5); Carbon Dioxide 24 mmol/L (22-29); Chloride 95 mmol/L (98-107); Globulin 2.6 g/dL (1.3-4.6); Glomerular Filtration Rate 95.6 mL/min (90-130); Glucose 166 mg/dL (65-115); Osmolality Calculated 273 mOsm/kg (285-295); Sodium 130 mmol/L (136-145); Total Bilirubin 0.2 mg/dL (0.15-1.2); Total Protein 6.5 g/dL (6.6-8.7)
[2020-03-03 06:40] LABS: Anion Gap 15.1 (5-19); Potassium 4.1 mmol/L (3.5-5.1)
[2020-03-03] MEDS: aspirin 81 mg EC Tablet PO (09:00)
[2020-03-03] MEDS: lisinopril 20 mg Tablet PO (09:01)
[2020-03-03] MEDS: famotidine 20 mg Tablet PO (09:01)
[2020-03-03] MEDS: multivitamin therapeutic Tablet 1 TAB PO (09:01)
[2020-03-03] MEDS: nicotine 21 mg Patch 1 PATCH TRANSDERMA (09:02)
[2020-03-03] MEDS: hydroCHLOROthiazide 25 mg Tablet 12.5 MG PO (09:04)
--- NOTE | 2020-03-03 09:35 | PC.RESP ---
Smoking Cessation information sent to patient.
--- NOTE | 2020-03-03 11:18 | PM.DCS ---
Discharge Providers Date of Admission: 03/01/20 20:56 Date of Discharge: March 03, 2020 Attending Provider at Admission: Russel Carolina MD Attending Provider at Discharge: Russel Carolina MD Primary Care Provider: Sandy Arreola DO Diagnoses at Discharge Discharge Diagnosis (1) Acute respiratory failure with hypoxia: Status: Acute (2) BPH (benign prostatic hyperplasia): Status: Acute (3) HTN (hypertension) with goal to be determined: Status: Acute (4) Acute exacerbation of chronic obstructive airways disease: Status: Acute (5) NSTEMI (non-ST elevated myocardial infarction): Status: Acute Reason for Visit Reason for Visit: DIFF BREATHING Hospital Course Hospital Course This is a 69-year-old male with a past medical history of hypertension, BPH, greater than 60-[id number]-[id number] history of smoking, newly diagnosed COPD in the last few weeks, not on home oxygen, who presents to [facility] due to complaints of shortness of breath Patient was admitted to [facility] for acute hypoxic respiratory failure secondary to COPD exacerbation, Covid was negative, flu was negative, respiratory cultures remain negative, CT angiogram of the chest did not show pulmonary emboli, but did show centrilobular emphysema. Echocardiogram showed an EF of 55%, no gross wall motion abnormalities, no complaints of chest pain. Patient received steroid therapy, doxycycline, inhaler therapy, oxygen therapy, and clinically monitored. Patient clinically improved, lungs clear to auscultation bilaterally, ambulating without significant symptomatology, down to 3 L nasal cannula. Patient will be discharged on a long steroid taper, doxycycline, Advair, Spiriva, albuterol, oxygen therapy and a close follow-up with a primary care provider and pulmonary in 1 week. Patient was advised to quit smoking. Advised of the dangers of smoking around oxygen. Physical Exam Const: COMMON NORMALS: no acute distress and patient oriented x3 HENMT: COMMON NORMALS: normocephalic HEAD & SCALP: normocephalic Neck/C-Spine: COMMON NORMALS: no JVD Resp: COMMON NORMALS: normal respiratory effort, No retractions, No use of accessory muscles and clear to auscultation bilaterally AUSCULTATION: clear to auscultation bilaterally Cardio: COMMON NORMALS: no JVD, regular rate, regular rhythm, S1 normal heart sound present and S2 normal heart sound present RATE: regular rate RHYTHM: regular rhythm HEART SOUNDS: S1 normal heart sound present and S2 normal heart sound present GI: COMMON NORMALS: Normal to inspection, nondistended, normoactive bowel sounds present, Soft to palpation, non-tender, No hepatosplenomegaly present, no masses and no bruits PALPATION: Yes Soft to palpation and Yes No hepatosplenomegaly present Extremity: COMMON NORMALS: capillary refill normal, no clubbing, cyanosis or edema, no calf tenderness and no pedal edema NARRATIVE EXTREMITY EXAM: Left arm, IV infiltration site, erythematous, tender, weeping with fluid Neuro: COMMON NORMALS: patient oriented x3 Psych: COMMON NORMALS: mental status grossly normal Discharge Data Data Completed and Pending: Completed Studies During Hospitalization Category Date Time Status CT angio chest PE protcl [id number] Urge nt Cat Scan 03/02/20 21:28 Completed XR chest 1V missy ble [id number] Stat Exams 03/01/20 11:04 Completed CV echo complete* [id number] Routine Ultrasound 03/02/20 21:28 Completed Pending at discharge Category Date Time Status Bacterial Antigen Stat Lab 03/01/20 21:28 Uncollected Blood Culture Sta t Lab 03/01/20 22:58 Results Complete Blood Co unt w/Auto AM LABS Lab 03/04/20 04:00 Ordered Complete Blood Co unt w/Auto AM LABS Lab 03/05/20 04:00 Ordered Comprehensive Met abolic Panel AM LA BS Lab 03/04/20 04:00 Ordered Comprehensive Met abolic Panel AM LA BS Lab 03/05/20 04:00 Ordered Magnesium AM LABS Lab 03/04/20 04:00 Ordered Phosphorus AM LAB S Lab 03/04/20 04:00 Ordered Sputum Culture an d Gram Stain Stat Lab 03/01/20 11:04 Uncollected Labs from last 24 hours 03/03/20 03/03/20 03/03/20 05:09 05:09 05:09 WBC 14.7 H RBC 3.74 L Hgb 12.8 Hct 38.7 L MCV 103.5 H MCH 34.2 H MCHC 33.1 RDW 13.2 Plt Count 197 MPV 11.0 H Neut % (Auto) 90.9 Lymph % (Auto) 3.8 Nolan % (Auto) 4.8 Eos % (Auto) 0.0 Baso % (Auto) 0.1 Neut # (Auto) 13.33 H Lymph # (Auto) 0.6 L Nolan # (Auto) 0.7 Eos # (Auto) 0.0 Baso # (Auto) 0.0 Nucleated RBC % (a uto) 0 Nucleated RBCs # 0.0 Sodium 130 L Potassium 4.1 Chloride 95 L Carbon Dioxide 24 Anion Gap 15.1 BUN 11 Creatinine 0.8 GFR Calculation 95.6 Glucose 166 H POC Glucose Calculated Osmolal ity 273 L Calcium 9.5 Phosphorus 2.8 Magnesium 1.9 Total Bilirubin 0.2 AST 23 ALT 16 Alkaline Phosphata se 99 Total Protein 6.5 L Albumin 3.9 Globulin 2.6 Nasal/Oral COVID-1 9 PCR 03/03/20 03/01/20 04:37 19:40 WBC RBC Hgb Hct MCV MCH MCHC RDW Plt Count MPV Neut % (Auto) Lymph % (Auto) Nolan % (Auto) Eos % (Auto) Baso % (Auto) Neut # (Auto) Lymph # (Auto) Nolan # (Auto) Eos # (Auto) Baso # (Auto) Nucleated RBC % (a uto) Nucleated RBCs # Sodium Potassium Chloride Carbon Dioxide Anion Gap BUN Creatinine GFR Calculation Glucose POC Glucose 184 H Calculated Osmolal ity Calcium Phosphorus Magnesium Total Bilirubin AST ALT Alkaline Phosphata se Total Protein Albumin Globulin Nasal/Oral COVID-1 9 PCR Not detected Vitals: Last Vital Signs Temp 98.6 F 03/03/20 07:21 Pulse 112 H 03/03/20 08:16 Resp 17 03/03/20 08:08 BP 117/71 03/03/20 07:21 Pulse Ox 92 03/03/20 10:41 Discharge Plan Discharge Patient Disposition: Home Condition: Stable Prescriptions: New lisinopril 20 mg Tablet 20 mg PO DAILY 30 Days Qty: 30 RF: 0 aspirin 81 mg Tablet,Delayed Release (Dr/Ec) 81 mg PO DAILY 30 Days Qty: 30 RF: 0 doxycycline hyclate 100 mg capsule 100 mg PO BID 5 Days Qty: 10 RF: 0 fluticasone propion-salmeterol [Advair Diskus] 500-50 mcg/dose blister with device 1 inh inhalation BID Qty: 60 RF: 0 prednisone 10 mg tablet 10 mg PO DAILY Qty: 53 RF: 0 Spiriva with HandiHaler 18 mcg capsule, w/inhalation device 1 cap inhalation DAILY Qty: 90 RF: 0 Continued multivitamin Tablet 1 tab PO DAILY RF: 0 ipratropium-albuterol 0.5 mg-3 mg(2.5 mg base)/3 mL Solution For Nebulization 3 ml INHALATION QID PRN (Reason: Shortness Of Breath) RF: 0 guaifenesin 200 mg Tablet 200 mg PO Q6H PRN (Reason: thin mucus) RF: 0 Flomax 0.4 mg Capsule 0.4 mg PO QPM RF: 0 montelukast 10 mg Tablet 10 mg PO QPM RF: 0 albuterol sulfate 90 mcg/actuation HFA aerosol inhaler 2 puff INHALATION QID PRN (Reason: Shortness Of Breath) RF: 0 vitamin E 400 unit Capsule 1 cap PO PRN RF: 0 Changed Vitamin B-12 100 mcg Tablet 100 mcg PO DAILY 30 Days Qty: 30 RF: 0 Discontinued lisinopril-hydrochlorothiazide 20-12.5 mg Tablet 1 tab PO QAM RF: 0 aspirin 325 mg Tablet 325 mg PO DAILY RF: 0 ibuprofen 200 mg Tablet 200 - 800 mg PO PRN RF: 0 Striverdi Respimat 2.5 mcg/actuation Mist 2 inh INHALATION QAM RF: 0 Discharge Orders: Discharge Order (Routine); Ordered 03/03/20 Ordered By: Russel Carolina Other Ambulatory Orders: DME: Oxygen (Order) Location: None Selected Ordered By: Russel Carolina Referrals: Kush Zacarias MD [Physician] - 1 week Sandy Arreola DO [Primary Care Provider] - Discharge Diet: Cardiac Discharge Activity: Resume usual activity Activity Restrictions/Additional Instructions: -Please take steroids and doxycycline as prescribed -Please use Advair and Spiriva as prescribed -Please follow-up with primary care provider in 1 week -Follow-up with your lung doctor in 1 week -For IV infiltration of left arm, keep left arm elevated, can use warm compresses Discharge Attestations Time Spent in Discharge Care*: greater than 30 min Quality Metrics Clinical Quality Measures During this hospital stay, did patient experience: None Coding Level of Care Code Acute Construction Coordinator for [facility] Fwd Diagnoses Acute respiratory failure with hypoxia J96.01 BPH (benign prostatic hyperplasia) N40.0 HTN (hypertension) with goal to be determined I10 Acute exacerbation of chronic obstructive airways disease J44.1 NSTEMI (non-ST elevated myocardial infarction) I21.4
== END 2020-03-03 14:45 | disposition home or self-care (01) | DRG 190 ==
LOC: ER 17:25 → MEDSURG 03-02 08:49
PROVIDERS: Admitting Provider Family Medicine; Emergency Provider Family Medicine; Family Provider Family Medicine; PCP Family Medicine; Visit Provider Family Medicine
DX: J44.1 Chronic obstructive pulmonary disease with (acute) exacerbation (principal); J96.01 Acute respiratory failure with hypoxia; I21.A1 Myocardial infarction type 2; I10 Essential (primary) hypertension; N40.0 Benign prostatic hyperplasia without lower urinary tract symptoms; F17.210 Nicotine dependence, cigarettes, uncomplicated; Z79.51 Long term (current) use of inhaled steroids
CPT/HCPCS: 12345; 36415; 36416; 36600; 71045; 71275; 80051; 80053; 80061; 81003; 82330; 82550; 82805; 82962; 83036; 83605; 83735; 83880; 84100; 84145; 84443; 84484; 85025; 87040; 87426; 87635; 93005; 93306; 94640; 94664; 97161; 97165; 99283; J1100; J1650; J2920; J3490; J3535; Q9967

== ENCOUNTER 2023-07-27 09:56 | Outpatient (CLI) | payer OTHER, SELFPAY ==
--- NOTE | 2023-07-27 10:15 | USCV_ITS ---
Hunter Mcadams Age: 72 Gender: M : 1950 Exam Date: 07/27/2023 10:08 Ordering Phys: Bry Mcghee DO Technologist: LEXI [place]am [place] [facility] [place]: AAA SCREENING HISTORY: Diameter (cm) AP x Transverse x Length Velocity (cm/s) Waveform Prox Aorta: 2.40 x 24.00 x 64.10 Triphasic Mid Aorta: 1.70 x 1.90 x 73.90 Triphasic Distal Aorta: 1.70 x 1.50 x 42.60 Triphasic Right Iliac Prox: 0.88 x 0.84 x 75.30 Triphasic Left Iliac Prox: 0.90 x 0.71 x 104.70 Triphasic Stent Prox Landing x x Aneurysmal Sac Max x x Lt Lat Sac Dim Rt Lat Sac Dim Stent Dist Landing x x Right Iliac Stent x x Left Iliac Stent x x Right Renal Art Left Renal Art FINDINGS: CONCLUSIONS No evidence of abdominal aortic or bilateral iliac aneurysm. Moderate aortic atheromatous disease Normal iliac arteries Anthony Mccall MD (Electronically Signed) Final Date: 27 Jul 2023 11:00 S
== END 2023-07-27 09:57 | disposition home or self-care (01) ==
PROVIDERS: Family Provider Family Medicine; PCP Family Medicine; Visit Provider Emergency Medicine Emergency Medical Services
DX: Z13.6 Encounter for screening for cardiovascular disorders (principal); I70.0 Atherosclerosis of aorta
CPT/HCPCS: 76706